=== PATIENT | male | born 1990 | race Caucasian/White ===

== ENCOUNTER 2020-02-22 13:53 | Emergency (ER) | payer SELFPAY ==
[~2020-02-22] VITALS: Ht 180.3 cm; Wt 81.6 kg
[2020-02-22 13:55] VITALS: BP 122/99
--- NOTE | 2020-02-22 13:55 | NUR ---
PT TAKEN TO BED 12 BY EMS.
--- NOTE | 2020-02-22 14:00 | NUR ---
29 YO M BIBA WITH C/C OF OD ON 3/30 MG OF PERCOCET, EMT STATED IT MIGHT HAVE BEEN LACED WITH FENTANYL. PT WAS FOUND UNRESPONSIVE/ UNCONCIOUS, WAS GIVEN 6 MG IM OF NARCAN, PT BEGAN WAKING UP. PT THREW UP 2XS ON ROUTE VIA IVP. EMT STATED PT IS A M[employer] USER. PT STATED HE SMOKED METH THEN SMOKED 3/30 MG OF PERCOCET. PT IS AWAKE AT THIS TIME AND ABLE TO ANSWER QUESTIONS. BED LOCKED IN LOWEST POSITION, SIDE RAILS X2. HX: ASTHMA NKA
[2020-02-22] MEDS ORDERED: ONDANSETRON 4 MG/2 ML VIAL IVP ONE (16:10)
--- NOTE | 2020-02-22 16:37 | NUR ---
pt is a&0 x4. pt in stable condition. equal rise and fall of chest wall. bed locked in lowest position, side rails x2.
--- NOTE | 2020-02-22 16:45 | NUR ---
IV removed, catheter intact and site benign. Applied folded 4x4 gauze and tape to stop bleeding.
[2020-02-22 16:48] VITALS: BP 115/70
--- NOTE | 2020-02-22 16:48 | NUR ---
Patient discharged with v/s stable. Written and verbal after care instructions given and explained. Patient alert, oriented and verbalized understanding of instructions. Ambulatory with steady gait. All questions addressed prior to discharge. ID band removed. Patient advised to follow up with PMD. Rx of Zofran 8mg given. Patient educated on indication of medication including possible reaction and side effects. Opportunity to ask questions provided and answered.
== END 2020-02-22 16:48 | disposition home or self-care (01) ==
LOC: MED 13:53
DX: T43.621A Poisoning by amphetamines, accidental (unintentional), initial encounter (principal); R11.2 Nausea with vomiting, unspecified; F17.200 Nicotine dependence, unspecified, uncomplicated; J45.909 Unspecified asthma, uncomplicated; Y92.89 Other specified places as the place of occurrence of the external cause
CPT/HCPCS: 96374; 99283; J2405